=== PATIENT | female | born 1980 | race Two or more races ===

== ENCOUNTER 2018-07-08 20:50 | Emergency (ER) | payer OTHER ==
[~2018-07-08] VITALS: Ht 165.1 cm; Wt 65.8 kg
--- NOTE | 2018-07-08 21:34 | NUR ---
TOBACCO WETTER WAS PAGED
--- NOTE | 2018-07-08 21:34 | NUR ---
pt bibself from home, c/o rt lower foot pain with redness and swelling s/p insect bite. pt is also c/o of nausea & migraine. Pt is afebrile. VS stable. Pt is a/ox4, verbal, able to make needs known. No s/s of acute distress or sob noted. being seen by md at bedside.
--- NOTE | 2018-07-08 21:45 | NUR ---
duplex venous of lower ext being done at bedside.
[2018-07-08] MEDS ORDERED: diphenhydrAMINE HCL ELIX 25 MG/10 ML UDC ONE (21:50)
[2018-07-08] MEDS ORDERED: MORPHINE SULFATE INJ 4 MG/ML DISP.SYRIN ONE (21:50)
[2018-07-08] MEDS ORDERED: CEPHALEXIN MONOHYDRATE 500 MG CAPSULE PO ONE (21:51)
[2018-07-08] MEDS ORDERED: ONDANSETRON 4 MG TAB.RAPDIS ONE (21:51)
[2018-07-08] MEDS: MORPHINE SULFATE INJ 2 MG/ML DISP.SYRIN IM ONE (22:00)
[2018-07-08] MEDS: ONDANSETRON 4 MG TAB.RAPDIS SL ONE (22:00)
[2018-07-08] MEDS: CEPHALEXIN MONOHYDRATE 500 MG CAPSULE PO ONE (22:00)
[2018-07-08] MEDS: DIPHENHYDRAMINE HCL 12.5 MG/5 ML UDC PO ONE (22:00)
--- NOTE | 2018-07-08 22:00 | NUR ---
ordered meds given.
--- NOTE | 2018-07-08 22:16 | NUR ---
duplex venous result showed no DVT on rt lower ext
--- NOTE | 2018-07-08 22:35 | NUR ---
Patient discharged to home in stable condition. Written and verbal after care instructions given. Patient verbalizes understanding of instruction. Instructed pt not to drive. at bedside will take pt back home. VS stable. No s/s of acute distress or sob noted. Pt left on foot walking with steady gait.
[2018-07-08 22:43] VITALS: BP 126/76
== END 2018-07-08 22:43 | disposition home or self-care (01) ==
LOC: ER 20:55
DX: L03.115 Cellulitis of right lower limb (principal); M79.7 Fibromyalgia; J45.909 Unspecified asthma, uncomplicated; I99.8 Other disorder of circulatory system; K21.9 Gastro-esophageal reflux disease without esophagitis; K58.9 Irritable bowel syndrome, unspecified; D25.9 Leiomyoma of uterus, unspecified; M62.81 Muscle weakness (generalized); F41.9 Anxiety disorder, unspecified; F45.9 Somatoform disorder, unspecified; F42.8 Other obsessive-compulsive disorder; E53.8 Deficiency of other specified B group vitamins; R53.83 Other fatigue; Z90.710 Acquired absence of both cervix and uterus; Z85.41 Personal history of malignant neoplasm of cervix uteri; Z88.8 Allergy status to other drugs, medicaments and biological substances
CPT/HCPCS: 93971-TC; A4606; J2270; Q0162; Q0163; Z7610

== ENCOUNTER 2018-08-02 19:25 | Emergency (ER) | payer OTHER ==
[~2018-08-02] VITALS: Ht 165.1 cm; Wt 63.5 kg
[2018-08-02 20:41] VITALS: BP 122/81
[2018-08-02] MEDS ORDERED: ONDANSETRON 4 MG TAB.RAPDIS ONE (21:14)
[2018-08-02] MEDS ORDERED: HYDROMORPHONE 1 MG/1 ML DISP.SYRIN ONE (21:14)
[2018-08-02] MEDS ORDERED: FAMOTIDINE (20 MG) 20 MG TABLET ONE (21:14)
[2018-08-02] MEDS ORDERED: diphenhydrAMINE HCL 25 MG CAPSULE ONE (21:14)
[2018-08-02] MEDS ORDERED: SULFAMETH/TRIMETH 800/160 MG 1 UDTAB TABLET PO ONE ×2 (21:15→21:30)
[2018-08-02] MEDS ORDERED: predniSONE 20 MG TABLET ONE (21:15)
[2018-08-02] MEDS ORDERED: ONDANSETRON 4 MG TAB.RAPDIS SL ONE (21:30)
[2018-08-02] MEDS ORDERED: HYDROMORPHONE 1 MG/1 ML DISP.SYRIN IM ONE (21:30)
[2018-08-02] MEDS ORDERED: FAMOTIDINE (20 MG) 20 MG TABLET PO ONE (21:30)
[2018-08-02] MEDS ORDERED: predniSONE 20 MG TABLET PO ONE (21:30)
[2018-08-02] MEDS ORDERED: diphenhydrAMINE HCL 25 MG CAPSULE PO ONE (21:30)
== END 2018-08-02 21:28 | disposition home or self-care (01) ==
LOC: ER 19:25
DX: S70.362A Insect bite (nonvenomous), left thigh, initial encounter (principal); L08.9 Local infection of the skin and subcutaneous tissue, unspecified; G43.909 Migraine, unspecified, not intractable, without status migrainosus; J45.909 Unspecified asthma, uncomplicated; K21.9 Gastro-esophageal reflux disease without esophagitis; F41.9 Anxiety disorder, unspecified; F42.8 Other obsessive-compulsive disorder; D64.9 Anemia, unspecified; Z87.442 Personal history of urinary calculi; Z90.710 Acquired absence of both cervix and uterus; Z88.8 Allergy status to other drugs, medicaments and biological substances; W57.XXXA Bitten or stung by nonvenomous insect and other nonvenomous arthropods, initial encounter; Y93.89 Activity, other specified; Y92.89 Other specified places as the place of occurrence of the external cause; Y99.8 Other external cause status
CPT/HCPCS: 96372; 99284; A4606; J1170; J7512; Q0162; Q0163; Z7610

== ENCOUNTER 2022-07-22 22:44 | Emergency (ER) | payer OTHER ==
[~2022-07-22] VITALS: Ht 165.1 cm; Wt 62.6 kg
--- NOTE | 2022-07-23 00:20 | NUR ---
DIPESH. CONSTIPATION, DIZZYNESS, DROWSINESS, LIGHTHEADEDNESS, UPSET STOMACH VOMMITING X 4 DAYS. ASSOCIATES SYMPSTOMS AFTER STARTING OLANZAPINE. PATIENT ALERT AND ORIENTED X2/3. IN BED 07 AWAITING MD BUSH. NO RESPIRATORY DISTRESS NOTED.
[2022-07-23] MEDS ORDERED: DICYCLOMINE HCL 10 MG CAPSULE PO ONE ×2 (01:00→01:10)
[2022-07-23] MEDS ORDERED: ONDANSETRON HCL/PF 4 MG/2 ML VIAL IVP ONE (01:00)
[2022-07-23] MEDS ORDERED: ONDANSETRON HCL/PF 4 MG/2 ML VIAL ONE (01:10)
[2022-07-23 01:19] LABS: BASOPHILS % (AUTO) 0.5 % (0.0-2.0); EOSINOPHILS % (AUTO) 0.7 % (0.0-6.0); HEMATOCRIT 39 % (33-45); HEMOGLOBIN 13.1 g/dL (11.5-14.8); MEAN CORPUSCULAR HGB CONC 33 g/dl (31.0-36.0); MEAN CORPUSCULAR VOLUME 89 fL (82-100); MONOCYTES # (AUTO) 0.6 K/uL (0.1-1.30); MONOCYTES % (AUTO) 6.9 % (2.0-12.0); NEUTROPHILS # (AUTO) 5.6 K/uL (1.8-8.9); NEUTROPHILS % (AUTO) 67.9 % (43.0-81.0); PLATELET COUNT (AUTO) 299 K/uL (150-450); RED BLOOD CELL COUNT(AUTO) 4.42 MIL/uL (4.0-5.2); WHITE BLOOD COUNT (AUTO) 8.3 K/uL (4.3-11.0)
[2022-07-23 01:43] LABS: ALBUMIN 3.4 g/dL (3.4-5.0); BILIRUBIN,DIRECT 0.1 mg/dL (0.0-0.2); BILIRUBIN,TOTAL 0.4 mg/dL (0.2-1.0); CALCIUM, SERUM 8.3 mg/dL (8.5-10.1); CREATININE 0.8 mg/dL (0.6-1.3); POTASSIUM 3.4 mmol/L (3.5-5.1)
[2022-07-23] MEDS ORDERED: IOHEXOL-300 100 ML VIAL IV ONE (02:21)
[2022-07-23 04:21] LABS: BILIRUBIN,URINE NEGATIVE (NEGATIVE); COLOR,URINE YELLOW (YELLOW); LEUKOCYTE ESTERASE ,URINE NEGATIVE (NEGATIVE); NITRITE, URINE NEGATIVE (NEGATIVE); PH,URINE 5.5 (5.0-8.0); PROTEIN,URINE NEGATIVE (NEGATIVE); UGLUCOSE NEGATIVE (NEGATIVE); UROBILINOGEN,URINE 0.2 EU/dL (0.2)
[2022-07-23 05:17] VITALS: BP 122/81
--- NOTE | 2022-07-23 05:18 | NUR ---
Patient discharged to home in stable condition. Written and verbal after care instructions given. Patient verbalizes understanding of instruction.IV removed. Catheter intact and site benign. Pressure and 4x4 applied to site. No bleeding noted.
== END 2022-07-23 05:17 | disposition home or self-care (01) ==
LOC: ER 22:48
DX: K59.00 Constipation, unspecified (principal); R10.9 Unspecified abdominal pain; M79.7 Fibromyalgia; G43.909 Migraine, unspecified, not intractable, without status migrainosus; J45.909 Unspecified asthma, uncomplicated; K21.9 Gastro-esophageal reflux disease without esophagitis; F41.9 Anxiety disorder, unspecified; F42.9 Obsessive-compulsive disorder, unspecified; D64.9 Anemia, unspecified; Z98.890 Other specified postprocedural states; Z88.8 Allergy status to other drugs, medicaments and biological substances
CPT/HCPCS: 99285; 74177; 96374; 85025; 80048; 83690; 80076; 84703; 81003; 36415; J2405; Q9967